=== PATIENT | female | born 1965 | race Caucasian/White ===

== ENCOUNTER → 2019-10-11 14:24 | Outpatient (CLI) | payer OTHER, SELFPAY ==
--- NOTE | ~2019-10-11 | MM_ITS ---
EXAMINATION: MM screening [facility] BI w oscar HISTORY: Screening mammogram TECHNIQUE: Craniocaudal and mediolateral oblique 3-D tomosynthesis images were obtained and synthetic 2-D images were generated. CAD analysis was submitted and interpreted. COMPARISON: 05/07/2017, 04/03/2016, 03/01/2013 BREAST PARENCHYMAL COMPOSITION: The breasts are heterogeneously dense, which may obscure small masses . FINDINGS: RIGHT BREAST: A mass is present in the middle third of the lower inner breast best seen 7 cm from the nipple on the craniocaudal view. LEFT BREAST: There is no evidence of suspicious mass, calcification, or architectural distortion to s uggest malignancy. There has been no significant interval change. IMPRESSION: 1. Right breast mass. 2. Additional mammographic views and possible breast ultrasound are recommended. BI-RADS Category 0: Incomplete: Needs additional imaging evaluation. Reviewed, dictated and finalized at location A. IMPRESSION: 1. Right breast mass. 2. Additional mammographic views and possible breast ultrasound are recommended . BI-RADS Category 0: Incomplete: Needs additional imaging evaluation.
== END ==
PROVIDERS: PCP Family Medicine; Visit Provider Obstetrics & Gynecology
DX: Z12.31 Encounter for screening mammogram for malignant neoplasm of breast (principal); R92.8 Other abnormal and inconclusive findings on diagnostic imaging of breast
CPT/HCPCS: 77063; 77067

== ENCOUNTER → 2019-10-24 14:36 | Outpatient (CLI) | payer OTHER, SELFPAY ==
--- NOTE | ~2019-10-24 | MMUS_ITS ---
EXAMINATION: MM diagnostic mammo unilat RT, US breast RT limited HISTORY: Follow-up right breast mass TECHNIQUE: Additional 3-D tomosynthesis images of the right breast were performed and synthetic 2-D i mages were generated. CAD analysis was submitted and interpreted. High resolution right breast ultras ound was performed. COMPARISON: 10/11/2019 BREAST PARENCHYMAL COMPOSITION: The breasts are heterogenously dense, which may obscure small masses FINDINGS: MAMMOGRAPHIC FINDINGS: There is a persistent focal asymmetry medially in the right breast on CC view, middle third. No suspi cious calcifications or architectural distortion. Right breast ultrasound: At 3:00, 4 cm from the nipple, there is a 4 mm complicated cyst. This likely corresponds to the abnor mality seen on mammogram. No suspicious sonographic masses. IMPRESSION: 1. No evidence for malignancy in the right breast. Benign findings. 2. Routine yearly screening mammogram and regular clinical breast examination are recommended. BI-RADS Category 2: Benign finding(s). Reviewed, dictated and finalized at location A. IMPRESSION: 1. No evidence for malignancy in the right breast. Benign findings. 2. Routine yearly screening mammogram and regular clinical breast examination a re recommended. BI-RADS Category 2: Benign finding(s).
== END ==
PROVIDERS: Visit Provider Obstetrics & Gynecology
DX: R92.8 Other abnormal and inconclusive findings on diagnostic imaging of breast (principal)
CPT/HCPCS: 76642; 77065

== ENCOUNTER → 2021-02-10 15:05 | Outpatient (CLI) | payer OTHER, SELFPAY ==
--- NOTE | ~2021-02-10 | XR_ITS ---
EXAMINATION: XR lumbar spine 2-3V DATE: 02/10/2021 15:30 INDICATION: Low back pain, unspecified. TECHNIQUE: 3 views of lumbar spine were obtained. COMPARISON: None. FINDINGS: There is 3 degrees dextrocurvature of lumbar spine. Vertebral body heights and intervertebr al disc heights are normal. There are endplate osteophytes at most levels. There is multilevel mild t o moderate facet joint osteoarthritis. Surgical clips in the right upper quadrant are likely from cho lecystectomy. IMPRESSION: 1. Mild lumbar spondylosis. Reviewed, dictated and finalized at location A. OR TECHNICAL MANAGER IMPRESSION: 1. Mild lumbar spondylosis.
== END ==
PROVIDERS: PCP Family Medicine; Visit Provider Nurse Practitioner Family
DX: M54.50 Low back pain, unspecified (principal); M47.816 Spondylosis without myelopathy or radiculopathy, lumbar region
CPT/HCPCS: 72100

== ENCOUNTER → 2021-03-07 08:29 | Outpatient (CLI) | payer OTHER, SELFPAY ==
--- NOTE | ~2021-03-07 | MM_ITS ---
EXAMINATION: MM diagnostic [place] BI w oscar HISTORY: Tic bite in July at right breast 3-4:00 with associated lump and redness, not present over past 3 months TECHNIQUE: ML, MLO and craniocaudal 3-D tomosynthesis images of both breasts were performed and synth etic 2-D images were generated. CAD analysis was submitted and interpreted. COMPARISON: 10/24/2019diagnostic right mammogram and limited right breast ultrasound 10/11/2019, 05/07/2017, 04/03/2016 bilateral screening mammogram examinations bilateral screening mammogr am examinations BREAST PARENCHYMAL COMPOSITION: The breasts are heterogeneously dense, which may obscure small masses . FINDINGS: No suspicious mass or architectural distortion, malignant calcification, skin thickening or retraction or significant new or developing density is detected. IMPRESSION: 1. No mammographic evidence of malignancy 2. Routine mammographic screening BI-RADS Category 1: Negative Reviewed, dictated and finalized at location A. S MILL OPERATOR
== END ==
PROVIDERS: PCP Family Medicine; Visit Provider Family Medicine
DX: R92.8 Other abnormal and inconclusive findings on diagnostic imaging of breast (principal)
CPT/HCPCS: 77062; 77066; G0279

== ENCOUNTER → 2021-05-02 14:22 | Outpatient (CLI) | payer OTHER, SELFPAY ==
--- NOTE | ~2021-05-02 | MMUS_ITS ---
EXAMINATION: MM diagnostic [place] RT w oscar, US breast RT limited HISTORY: Pain of the upper right breast TECHNIQUE: Craniocaudal, mediolateral, and mediolateral oblique 3-D tomosynthesis images of the right breast were performed and synthetic 2-D images were generated. CAD analysis was submitted and interp reted. High resolution limited right breast ultrasound was performed. COMPARISON: 03/07/2021, 10/24/2019, 10/11/2019, 05/07/2017, 04/03/2016 BREAST PARENCHYMAL COMPOSITION: The breasts are heterogeneously dense, which may obscure small masses . FINDINGS: MAMMOGRAPHIC FINDINGS: There is no evidence of suspicious mass, calcification, or architectural distortion to suggest jenn leigh. There has been no suspicious interval change. No mammographic correlate the patient's reported right breast pain. ULTRASOUND: No suspicious cystic or solid mass is identified in the area of the patient's reported right breast p ain. There is a 6 mm x 4 mm cyst at the 12:00 location 6 cm from the nipple. IMPRESSION: 1. No suspicious mammographic or sonographic correlate is identified for the patient's reported right breast pain Further evaluation at this time should be based on clinical assessment. Continued follow -up physical examination is recommended. 2. Recommend routine screening mammography in one year. BI-RADS Category 2: Benign finding(s). Reviewed, dictated and finalized at location A. SITTER IMPRESSION: 1. No suspicious mammographic or sonographic correlate is identified for the george nash's reported right breast pain Further evaluation at this time should be ba sed on clinical assessment. Continued follow-up physical examination is recomme nded. 2. Recommend routine screening mammography in one year. BI-RADS Category 2: Benign finding(s).
== END ==
PROVIDERS: PCP Family Medicine; Visit Provider Obstetrics & Gynecology
DX: N64.4 Mastodynia (principal)
CPT/HCPCS: 76642; 77061; 77065; G0279

== ENCOUNTER 2021-05-14 10:11 | Emergency (ER) | payer OTHER, SELFPAY ==
[2021-05-14 10:33] VITALS: BP 152/78; PULSE 87; RESP 20; TEMP 36.4; O2SAT 100
--- NOTE | 2021-05-14 11:59 | ED.BACK ---
HPI - Back Pain/Injury General Chief Complaint: Back Pain/Injury Stated Complaint: back pain Time Seen by Provider: 05/14/21 11:19 Source: patient Mode of arrival: ambulatory Limitations: no limitations History of Present Illness HPI Narrative: Patient is a 55-year-old female complaining of left lower back pain, sharp, 8 out of 10, nonradiating, worse with movement that started 3 days ago. Patient states that she has a history of low back pain and is on muscle relaxers for it, but her pain usually on the right side and not the left. Patient denies any injury to the area. Patient denies any incontinence, weakness or numbness. Patient denies any urinary symptoms. Related Data Home Medications Medication Instructions Recorded Confirmed estradiol 0.0375 mg/24 hr 1 patch TRANSDERMAL 2XW 04/08/21 04/08/21 semiweekly transdermal patch testosterone 50 mg/5 gram (1 %) 1 tube TRANSDERMAL QAM 04/08/21 04/08/21 transdermal gel Allergies Allergy/AdvReac Type Severity Reaction Status Date / Time Sulfa (Sulfonamide Allergy Unknown Unknown Verified 04/08/21 13:41 Antibiotics) Review of Systems Review of Systems: All systems reviewed & are unremarkable except as noted in HPI and below Constitutional: Constitutional: Denies body ache(s), Denies chills, Denies excessive sweating, Denies fatigue, Denies fever(s), Denies headache(s), Denies lethargy, Denies malaise, Denies weakness and Denies weight loss Eyes: Eyes: Denies blurry vision, Denies change in vision and Denies loss of vision ENT: Denies dizziness, Denies ear discharge, Denies headache(s), Denies lip swelling, Denies epistaxis, Denies nasal congestion, Denies neck pain, Denies throat swelling and Denies tongue swelling Cardiovascular: Cardiovascular: Denies chest pain, Denies chest pain at rest, Denies chest pain with activity, Denies diaphoresis, Denies rapid heart rate, Denies edema, Denies irregular heart rhythm, Denies lightheadedness, Denies palpitations, Denies dyspnea and Denies dyspnea on exertion Respiratory: Respiratory: Denies chest congestion, Denies cough, Denies hemoptysis, Denies dyspnea and Denies dyspnea on exertion Gastrointestinal: Gastrointestinal: Denies abdominal pain, Denies melena, Denies hematochezia, Denies diarrhea, Denies nausea, Denies vomiting and Denies hematemesis Musculoskeletal: Musculoskeletal: Denies abnormal gait, Denies deformity, Denies joint swelling, Denies neck pain and Denies numbness Neurologic: Denies Abnormal speech present, Denies abnormal gait, Denies confusion, Denies dizziness, Denies headache(s), Denies focal weakness, Denies loss of vision, Denies numbness, Denies Other visual disturbances, Denies Sensory deficit (Neuro) and Denies weakness Psychiatric: Psychiatric: Denies confusion, Denies depression, Denies auditory hallucinations, Denies homicidal ideation and Denies suicidal ideation Endocrine: Endocrine: Denies cold intolerance, Denies excessive sweating, Denies fatigue, Denies heat intolerance and Denies palpitations Hematologic/Lymphatic: Hematologic/Lymphatic: Denies easy bleeding and Denies easy bruising Allergic/Immunologic: Allergic/Immunologic: Denies lip swelling, Denies throat swelling and Denies tongue swelling PMFSH Past Medical History Medical History BMI 31.0-31.9,adult BMI 32.0-32.9,adult Family History Family History Grandparent Hypertension Family history of malignant neoplasm of breast Family history of coronary artery disease Diabetes mellitus Father Carcinoma of colon Mother Diabetes mellitus Hypertension Sibling Hypertension Diabetes mellitus Social History Social History Tobacco type: cigarettes Smoking end date: 04/05/86 Alcohol intake: current Substance use: never Substance use type: does not use
[2021-05-14] MEDS: HYDROcodone/acetaminophen (*CRX) 5-325 MG TABLET 1 TAB PO (12:10)
[2021-05-14] MEDS: KETOROLAC 30 MG/ML VIAL (*BKC) IM (12:10)
[2021-05-14] MEDS: diazePAM INJ (*CRX) 10 MG/2 ML SYRINGE 5 MG IM (12:11)
[2021-05-14 12:35] LABS: Add Urine Microscopic? NO; Appearance Urine Clear (Clear); Bilirubin Urine Negative (Negative); Blood Urine Negative (Negative); Color Urine Straw (Yellow); Glucose Urine UA Negative (Negative); Ketones Urine Negative (Negative); Leukocyte Esterase Ur Negative LEU/UL (Negative); Nitrate Urine Negative (Negative); Protein Urine Negative (Negative); Urobilinogen Urine Negative mg/dL (<2.0)
[2021-05-14 12:38] LABS: Specific Grav Ur 1.004 (1.001-1.035)
[2021-05-14 14:43] VITALS: BP 133/72; PULSE 71; RESP 14; O2SAT 99
== END 2021-05-14 14:43 | disposition home or self-care (01) ==
PROVIDERS: Emergency Provider Emergency Medicine; PCP Family Medicine
DX: S39.012A Strain of muscle, fascia and tendon of lower back, initial encounter (principal); X58.XXXA Exposure to other specified factors, initial encounter
CPT/HCPCS: 81003; 96372; 99284; A9270; J1885; J3360

== ENCOUNTER → 2021-05-15 11:26 | Outpatient (CLI) | payer OTHER, SELFPAY ==
--- NOTE | ~2021-05-15 | XR_ITS ---
EXAMINATION: XR abdomen/kub 1V DATE: 05/15/2021 11:56 INDICATION: Change in bowel habit. Constipation. Diarrhea. Left lower back pain. TECHNIQUE: A supine view of the abdomen on 2 radiographs was obtained. COMPARISON: None. FINDINGS: There are no dilated loops of bowel. There is a small volume of stool in the colon. There a re phleboliths in the pelvis. Surgical clips in the right upper quadrant are likely from cholecystect daily. IMPRESSION: 1. Normal bowel gas pattern. Reviewed, dictated and finalized at location E. CING SUPERVISOR
== END ==
PROVIDERS: Visit Provider Nurse Practitioner Family
DX: R19.4 Change in bowel habit (principal)
CPT/HCPCS: 74018

== ENCOUNTER → 2021-08-20 11:28 | Outpatient (CLI) | payer OTHER, SELFPAY ==
--- NOTE | ~2021-08-20 | XR_ITS ---
EXAM: XR hip RT min 2V DATE: 08/20/2021 11:53 HISTORY: M25.60 - Stiffness of unspecified joint, not elsewhere cl... . COMPARISON: CT abdomen pelvis 06/22/2012. FINDINGS: Normal mineralization. No fracture or dislocation. No lytic or blastic lesion. Mild degene rative change at the right SI joint and pubic symphysis. Mild superior joint space narrowing of the r ight hip. The left sacroiliac joint is incompletely visualized. No erosion or periosteal change. Jaylin tly ossified body adjacent to the greater trochanter in the frog-leg view may represent a small focus of bursal or dystrophic calcification. Pelvic phleboliths. IMPRESSION: No acute osseous finding in the right hip. Right sacroiliitis. Dystrophic or bursal calci fication adjacent to the greater trochanter. Reviewed, dictated and finalized at location K. IMPRESSION: No acute osseous finding in the right hip. Right sacroiliitis. Dyst rophic or bursal calcification adjacent to the greater trochanter.
--- NOTE | ~2021-08-20 | XR_ITS ---
EXAM: XR foot RT 2V HISTORY: R22.41 - Localized swelling, mass and lump, right lower limb . COMPARISON: None available. FINDINGS: Decreased mineralization. No fracture or dislocation. No lytic or blastic lesion. Joint sp aces are maintained. Mild Achilles and plantar enthesopathy. Large bipartite os navicularis. No erosi on or periosteal change. Soft tissues within normal limits. IMPRESSION: No acute osseous finding in the right foot. No soft tissue abnormality detected. Reviewed, dictated and finalized at location K. IMPRESSION: No acute osseous finding in the right foot. No soft tissue abnormal ity detected.
== END ==
PROVIDERS: PCP Family Medicine; Visit Provider Nurse Practitioner Family
DX: R22.41 Localized swelling, mass and lump, right lower limb (principal); M46.1 Sacroiliitis, not elsewhere classified; M25.60 Stiffness of unspecified joint, not elsewhere classified
CPT/HCPCS: 73502; 73620

== ENCOUNTER 2021-09-11 02:18 | Day surgery (SDC) | payer OTHER, SELFPAY ==
[2021-08-21 12:07] VITALS: BMI 30.2
--- NOTE | 2021-09-10 15:11 | PM.HPGS ---
History of Present Illness History of Present Illness Consent: Risks, benefits, and alternatives have been discussed and questions answered. Patient agrees to proceed with procedure. Chief complaint: hx of colon polyps Narrative: Nikita Tristan is a 55 year old female Referred for colon cancer screening. She had a sessile serrated polyp removed at her last colonoscopy 3 years ago. She also has a family history of colon cancer Review of Systems Review of Systems: All systems reviewed & are unremarkable except as noted in HPI and below PMFSH Past Medical History Medical History BMI 30.0-30.9,adult BMI 31.0-31.9,adult BMI 32.0-32.9,adult Family History Family History Grandparent Hypertension Family history of malignant neoplasm of breast Family history of coronary artery disease Diabetes mellitus Father Carcinoma of colon Mother Diabetes mellitus Hypertension Sibling Hypertension Diabetes mellitus Social History Social History Smoking status: Former smoker Tobacco type: cigarettes Second hand tobacco smoke exposure: Yes Smoking end date: 04/05/86 Alcohol intake: current Substance use: never Substance use type: does not use Living arrangements: with family Additional occupation/education comments: [employer] Gender identity (if verbalized by the patient): Female Sexual Orientation (if Verbalized by the Patient): Straight or Heterosexual Spiritual care concerns: No Agree to blood products: Yes Meds Home Medications and Allergies Home Medications Medication Instructions Recorded Confirmed Type albuterol sulfate 90 mcg/actuation 1 puff inhalation Q4H PRN 05/10/20 09/11/21 Rx aerosol inhaler shortness of breath or wheezing #8.5 grams estradiol 0.0375 mg/24 hr 1 patch transdermal 2XW 04/08/21 09/11/21 History semiweekly transdermal patch (Vivelle-Dot) ibuprofen 600 mg tablet 600 mg PO TID PRN pain #60 tabs 05/14/21 09/11/21 Rx bupropion HCl 150 mg 24 hr tablet, 150 mg PO QAM #30 tabs 07/29/21 09/11/21 Rx extended release (Wellbutrin XL) cyclobenzaprine 10 mg tablet 10 mg PO TID PRN muscle spasm #30 05/17/22 06/09/22 Rx tabs alprazolam 0.5 mg tablet (Xanax) 0.5 mg PO BID PRN anxiety 08/21/21 09/11/21 History Allergies Allergy/AdvReac Type Severity Reaction Status Date / Time Sulfa (Sulfonamide Allergy Unknown Unknown Verified 09/11/21 07:29 Antibiotics) Exam Resp: Auscultation: clear to auscultation bilaterally Cardio: Rate: regular rate Rhythm: regular rhythm GI: GI Palp: Yes Soft to palpation and No Tenderness to palpation present (GI) Assessment and Plan Assessment and plan (1) Colon cancer screening: Code(s): Z12.11 - Encounter for screening for malignant neoplasm of colon Status: Acute Assessment and Plan: Colonoscopy with possible biopsy or polypectomy or cautery or injection of substances.
[2021-09-11 07:30] VITALS: BP 130/80; PULSE 98; RESP 18; TEMP 36.1; O2SAT 100
[2021-09-11] MEDS: LACTATED RINGERS 1,000 ML 150 ML IV CONT (07:40)
--- NOTE | 2021-09-11 08:27 | WPDANESEPPF ---
Anes - Initial Pre Proc Eval Procedure: Operation Date: 09/11/21 08:30 Proposed Procedures p Screening Colonoscopy - Reymundo Estevez MD Date/Time: 09/11/21 08:27 Surgeon: Reymundo Estevez MD Pre Op Diagnosis: hx of colon polyps Patient Data Age: 55 Gender: F Height: 1.57 m Weight: 76.1 kg Last Vital Signs Temp 97 F L 09/11/21 07:30 Pulse 98 09/11/21 07:30 Resp 18 09/11/21 07:30 BP 130/80 09/11/21 07:30 Pulse Ox 100 09/11/21 07:30 O2 Del Method Room Air 09/11/21 07:30 Allergies Allergy/AdvReac Type Severity Reaction Status Date / Time Sulfa (Sulfonamide Allergy Unknown Unknown Verified 09/11/21 07:29 Antibiotics) Home Medications Medication Instructions Recorded Confirmed Type albuterol sulfate 90 mcg/actuation 1 puff inhalation Q4H PRN 05/10/20 09/11/21 Rx aerosol inhaler shortness of breath or wheezing #8.5 grams estradiol 0.0375 mg/24 hr 1 patch transdermal 2XW 04/08/21 09/11/21 History semiweekly transdermal patch (Vivelle-Dot) ibuprofen 600 mg tablet 600 mg PO TID PRN pain #60 tabs 05/14/21 09/11/21 Rx bupropion HCl 150 mg 24 hr tablet, 150 mg PO QAM #30 tabs 07/29/21 09/11/21 Rx extended release (Wellbutrin XL) cyclobenzaprine 10 mg tablet 10 mg PO TID PRN muscle spasm #30 08/19/21 09/11/21 Rx tabs alprazolam 0.5 mg tablet (Xanax) 0.5 mg PO BID PRN anxiety 08/21/21 09/11/21 History Patient hx anesthesia problems: none Family hx anesthesia problems: none Results Review: All pre-operative results and documents have been reviewed as part of the pre-operative evaluation. [facility] Past Medical History Medical History BMI 30.0-30.9,adult BMI 31.0-31.9,adult BMI 32.0-32.9,adult Family History Family History Grandparent Hypertension Family history of malignant neoplasm of breast Family history of coronary artery disease Diabetes mellitus Father Carcinoma of colon Mother Diabetes mellitus Hypertension Sibling Hypertension Diabetes mellitus Social History Social History Smoking status: Former smoker Tobacco type: cigarettes Second hand tobacco smoke exposure: Yes Smoking end date: 04/05/86 Alcohol intake: current Substance use: never Substance use type: does not use Living arrangements: with family Additional occupation/education comments: [employer] Gender identity (if verbalized by the patient): Female Sexual Orientation (if Verbalized by the Patient): Straight or Heterosexual Spiritual care concerns: No Agree to blood products: Yes Anes - Eval Final PreProcedure Day of Procedure 09/11/21 08:27 Patient weight: overweight Heart: regular rate and rhythm Lungs: clear to auscultation Airway: Mallampati scale class II Neurological: alert and oriented Last oral intake: >/= 8 hours ASA classification: II Emergent: no Anesthetic plan: proceed Anesthesia type and monitoring: general GIVS and standard monitoring Results Review: All pre-operative results and documents have been reviewed as part of the pre-operative evaluation. Informed Consent: The patient's anesthetic plan and its attendant risks and benefits were discussed with the patient/family/POA. Questions were solicited and answers provided to the satisfaction of the patient/family/POA.
[2021-09-11 08:39] VITALS: BP 111/61; PULSE 74; RESP 19; O2SAT 100
[2021-09-11 08:49] VITALS: BP 121/60; PULSE 83; RESP 17; O2SAT 100
[2021-09-11 08:59] VITALS: BP 117/62; PULSE 80; RESP 16; O2SAT 100
== END 2021-09-11 09:15 | disposition home or self-care (01) ==
PROVIDERS: PCP Family Medicine; Visit Provider Internal Medicine Gastroenterology
PROC: 0DJD8ZZ Inspection of Lower Intestinal Tract, Via Natural or Artificial Opening Endoscopic (ICD-10-PCS; CPT 45378; principal; 2021-09-11 08:30)
DX: Z12.11 Encounter for screening for malignant neoplasm of colon (principal); Z86.010 Personal history of colon polyps; Z87.891 Personal history of nicotine dependence; Z79.51 Long term (current) use of inhaled steroids
CPT/HCPCS: 45378; J2704; J7120

== ENCOUNTER → 2022-07-27 13:20 | Outpatient (CLI) | payer BC, SELFPAY ==
--- NOTE | ~2022-07-27 | US_ITS ---
EXAMINATION: US carotid duplex BI DATE: 07/27/2022 13:47 INDICATION: Headaches. Vertigo. Carotid atherosclerosis. TECHNIQUE: Grayscale, color Doppler, and pulsed Doppler images of the cervical carotid arteries were obtained. The degree of vessel stenosis is placed in one of the following categories: normal, <50%, 5 0-69%, >=70% but less than near-occlusion, near-occlusion, or total occlusion. Note that percent sten osis relative to normal distal artery lumen diameter is indirectly measured from velocity measurement s as described by Rosalio, et al. Radiology 2003; 229:340-346. COMPARISON: 01/02/2019 FINDINGS: RIGHT: The right common carotid artery (CCA) peak systolic velocity (PSV) is 96 cm/s. The right internal car otid artery (ICA) PSV is 63 cm/s. The right ICA end-diastolic velocity (EDV) is 17 cm/s. The right IC A/CCA PSV ratio is 1.1. Grayscale and color Doppler images yield an estimate of <50% diameter reducti on from plaque in the ICA. The external carotid artery (ECA) PSV is 40 cm/s. There is antegrade flow in the right vertebral artery. LEFT: The left CCA PSV is 79 cm/s. The left ICA PSV is 72 cm/s. The left ICA EDV is 29 cm/s. The left ICA/C CA PSV ratio is 1.4. Grayscale and color Doppler images yield an estimate of <50% diameter reduction from plaque in the ICA. The ECA PSV is 65 cm/s. There is antegrade flow in the left vertebral artery. IMPRESSION: 1. <50% stenosis in the right internal carotid artery. 2. <50% stenosis in the left internal carotid artery. Reviewed, dictated and finalized at location A.
--- NOTE | ~2022-07-27 | MR_ITS ---
EXAMINATION: MR brain/brain stem wo con DATE: 07/27/2022 14:09 INDICATION: Headache. TECHNIQUE: Magnetic resonance imaging (MRI) of the brain and brainstem was performed without intraven ous contrast. COMPARISON: Brain MRI 01/02/2019, head CT 01/01/2019 FINDINGS: There is no intracranial hemorrhage, acute infarction, or abnormal intracranial mass lesion . The ventricles are normal in size. The paranasal sinuses are clear. The orbits are normal. The mast oid air cells are normal. IMPRESSION: 1. Normal brain. Reviewed, dictated and finalized at location A. IMPRESSION: 1. Normal brain.
== END ==
PROVIDERS: PCP Family Medicine; Visit Provider Nurse Practitioner Family
DX: R51.9 Headache, unspecified (principal); R07.9 Chest pain, unspecified; I65.23 Occlusion and stenosis of bilateral carotid arteries
CPT/HCPCS: 70551; 93880

== ENCOUNTER → 2022-08-06 15:07 | Outpatient (CLI) | payer BC, SELFPAY ==
--- NOTE | ~2022-08-06 | MM_ITS ---
EXAMINATION: MM screening [facility] BI w oscar HISTORY: Screening mammogram TECHNIQUE: Craniocaudal and mediolateral oblique 3-D tomosynthesis images were obtained and synthetic 2-D images were generated. CAD analysis was submitted and interpreted. COMPARISON: 04/24/2021, 03/07/2021, 10/24/2019, 10/31/2019 BREAST PARENCHYMAL COMPOSITION: The breasts are heterogeneously dense, which may obscure small masses . FINDINGS: No suspicious mass, calcification, or architectural distortion are identified in either eloise ast to suggest malignancy. There has been no suspicious interval change. IMPRESSION: 1. No mammographic evidence of malignancy. 2. Recommend routine screening mammography in one year. BI-RADS Category 1: Negative Reviewed, dictated and finalized at location A.
== END ==
PROVIDERS: PCP Family Medicine; Visit Provider Family Medicine
DX: Z12.31 Encounter for screening mammogram for malignant neoplasm of breast (principal)
CPT/HCPCS: 77063; 77067

== ENCOUNTER 2022-10-12 09:06 | Outpatient (CLI) | payer BC, SELFPAY ==
[2022-10-12 12:46] LABS: Basophils Percent Auto 0.3 % (0.2-1.2); Eosinophils Absolute Auto 0.1 K/mm3 (0-0.3); Eosinophils Percent Auto 1.3 % (0-4.4); Hematocrit 42.7 % (37.0-47.0); Immature Granulocyte Absolute 0.03 K/mm3 (0.00-0.031); Immature Granulocyte Percent A 0.4 % (0-0.5); Lymphocytes Absolute Auto 2.01 K/mm3 (0.9-3.2); Lymphocytes Percent Auto 26.2 % (18.3-44.2); Mean Corpuscular HGB Conc 32.8 g/dl (32-36); Mean Corpuscular Hemoglobin 27.6 pg (26-34); Mean Corpuscular Volume 84.2 fl (80-100); Monocytes Absolute Auto 0.5 K/mm3 (0.1-0.6); Neutrophils Percent Auto 64.8 % (45.5-73.1); Platelet Count Result 313 k/mm3 (150-375); Red Blood Count 5.07 M/mm3 (4.2-5.4); Red Cell Distribution Width 13.8 % (11.5-14.5); White Blood Count 7.7 K/mm3 (4.5-10.0)
[2022-10-12 12:51] LABS: Rheumatoid Factor < 12.0 IU/ML (<12)
[2022-10-12 12:58] LABS: Anion Gap 1 mmol/L (8-16); Blood Urea Nitrogen 22 mg/dL (7-17); Calcium 9.5 mg/dL (8.4-10.2); Carbon Dioxide 29 mmol/L (22-30); Chloride 105 mmol/L (98-107); Estimated Glomerular Filt Rate > 60; Glucose 99 mg/dL (65-110); Potassium 3.9 mmol/L (3.4-5.0); Sodium 135 mmol/L (137-145)
[2022-10-12 13:20] LABS: Thyroid Stimulating Hormone < 0.015 uIU/mL (0.465-4.680)
[2022-10-12 14:55] LABS: Erythrocyte Sedimentation Rate 12 mm/hr (0-20)
[2022-10-15 05:31] LABS: Anti Nuclear Antibody Titer 1:40 (Negative)
== END 2022-10-12 09:07 | disposition home or self-care (01) ==
LOC: ANHGOSHLAB 09:07
PROVIDERS: PCP Family Medicine; Visit Provider Family Medicine
DX: M25.50 Pain in unspecified joint (principal); F41.9 Anxiety disorder, unspecified
CPT/HCPCS: 36415; 80048; 84439; 84443; 85025; 85652; 86038; 86039; 86430

== ENCOUNTER 2022-10-12 09:29 | Outpatient (CLI) | payer BC, SELFPAY ==
--- NOTE | ~2022-10-12 | XR_ITS ---
EXAMINATION: [id number] INDICATION: Heel pain TECHNIQUE: Four views of the left foot are obtained. COMPARISON: None available FINDINGS: No fracture, dislocation, or subluxation. The bones and joint spaces are normal. IMPRESSION: 1. No acute osseous abnormality. Reviewed, dictated and finalized at location B.
== END 2022-10-12 09:30 ==
PROVIDERS: PCP Family Medicine; Visit Provider Family Medicine
DX: M79.672 Pain in left foot (principal)
CPT/HCPCS: 73630

== ENCOUNTER 2023-02-26 08:43 | Outpatient (CLI) | payer BC, SELFPAY ==
--- NOTE | ~2023-02-26 | MR_ITS ---
EXAMINATION: MR abdomen wo/w con INDICATION: Hepatomegaly not elsewhere classified reported liver and right kidney masses on CT TECHNIQUE: Coronal SSFSE ARC, WATER:coronal LAVA-FLEX, Coronal 2D FIESTA FatSat, Axial SSFSE BH ARC, Axial 3D DualEcho BH, Axial SSFSE-IR, Axial DWI b=500, Axial 2D FIESTA FatSat, pre and dynamic postco ntrast Axial LAVA ARC, postcontrast Coronal In and Opposed phase LAVA FLEX COMPARISON: None current; prior MRI dated 04/12/2009 CONTRAST: Multihance, 13 cc FINDINGS: There is a stable no suspicious liver mass is identified. Changes of cholecystectomy are no anum. The spleen, pancreas, and adrenal glands are normal. There is a 2.5 cm cyst of the right kidney. The left kidney is unremarkable. There are no pathologically enlarged abdominal lymph nodes. There a re no dilated loops of bowel. 12 mm mildly T1 hypointense and mildly T2 hyperintense mass in liver se gment VIII which demonstrates slow peripheral enhancement after contrast administration, most consist ent with a hemangioma. IMPRESSION: 1. Stable liver mass most consistent with a hemangioma. 2. Simple cyst of the right kidney. Reviewed, dictated and finalized at location F. ER TRIMMER
== END 2023-02-26 08:44 | disposition home or self-care (01) ==
PROVIDERS: PCP Family Medicine; Visit Provider Family Medicine
DX: R16.0 Hepatomegaly, not elsewhere classified (principal); N28.89 Other specified disorders of kidney and ureter; N28.1 Cyst of kidney, acquired
CPT/HCPCS: 74183; A9577

== ENCOUNTER 2023-06-24 10:54 | Outpatient (CLI) | payer BC, SELFPAY ==
--- NOTE | ~2023-06-24 | XR_ITS ---
Left Shoulder Technique: AP and scapular Y views were obtained. Clinical History: Pain Findings: No fracture or dislocation is seen. Osseous alignment is anatomic. The glenohumeral joint i s intact. Mild AC joint degenerative change present. Soft tissues are unremarkable. Impression: Mild AC joint degenerative change. Reviewed, dictated and finalized at [facility]. Impression: Mild AC joint degenerative change.
== END 2023-06-24 10:55 | disposition home or self-care (01) ==
PROVIDERS: PCP Family Medicine; Visit Provider Physician Assistant
DX: M25.512 Pain in left shoulder (principal)
CPT/HCPCS: 73030

== ENCOUNTER 2023-07-01 08:13 | Outpatient (CLI) | payer BC, SELFPAY ==
--- NOTE | ~2023-07-01 | US_ITS ---
EXAMINATION: US art doppler w press UE BI DATE: 07/01/2023 12:39 CDT INDICATION: Peripheral vascular disease TECHNIQUE: Segmental pressures and plethysmographic and Doppler waveforms of the upper extremity rashid leah were obtained. COMPARISON: None. FINDINGS: Right and left brachial artery pressures of 158 mm Hg and 160 mm Hg, respectively, are concordant (no rmal difference <= 30 mmHg). The right finger:brachial systolic pressure ratio is 0.92 (normal > 0.8) . Segmental pressure gradients are normal. Arterial Doppler waveforms biphasic (normal upstroke < 0.2 s). The left finger:brachial systolic pressure ratio is 0.86. Segmental pressure gradients are normal. Ar terial Doppler waveforms are biphasic. IMPRESSION: 1. Normal upper extremity arterial Doppler study. Reviewed, dictated and finalized at location L.
== END 2023-07-01 08:14 | disposition home or self-care (01) ==
LOC: ANHIMG 08:15
PROVIDERS: PCP Family Medicine; Visit Provider Physician Assistant
DX: I99.8 Other disorder of circulatory system (principal)
CPT/HCPCS: 93923

== ENCOUNTER 2024-02-04 01:15 | Emergency (ER) | payer BC, SELFPAY ==
[2024-02-04 01:18] VITALS: BP 152/82; PULSE 79; RESP 18; TEMP 36.7; O2SAT 100
--- NOTE | 2024-02-04 01:18 | ECG_ITS ---
Test Date: 2024-02-04 01:28:33 Measurements Intervals [place] Rate: 75 P: 65 WI: 183 QRS: 30 QRSD: 85 T: 49 QT: 392 QTc: 440 Interpretive Statements SINUS RHYTHM BASELINE ARTIFACT- I, II, III, AVR, AVL, AVF, V4-V6 NORMAL ECG No previous ECG available for comparison Electronically Signed On 02-04-2024 06:48:28 CDT by Murali Samson D.O.
[2024-02-04 01:39] LABS: Basophils Percent Auto 0.3 % (0.2-1.2); Eosinophils Absolute Auto 0.3 K/mm3 (0-0.3); Eosinophils Percent Auto 2.2 % (0-4.4); Hematocrit 43.5 % (37.0-47.0); Hemoglobin 14.9 g/dL (12.0-15.0); Immature Granulocyte Absolute 0.07 K/mm3 (0.00-0.031); Immature Granulocyte Percent A 0.5 % (0-0.5); Lymphocytes Absolute Auto 4.18 K/mm3 (0.9-3.2); Lymphocytes Percent Auto 32.5 % (18.3-44.2); Mean Corpuscular HGB Conc 34.3 g/dl (32-36); Mean Corpuscular Hemoglobin 29.6 pg (26-34); Mean Corpuscular Volume 86.3 fl (80-100); Mean Platelet Volume 10.4 fl (7.4-10.4); Monocytes Percent Auto 7.4 % (2.6-8.5); Neutrophils Absolute Auto 7.4 K/mm3 (1.3-6.7); Neutrophils Percent Auto 57.1 % (45.5-73.1); Platelet Count Result 285 k/mm3 (150-375); Red Blood Count 5.04 M/mm3 (4.2-5.4); Red Cell Distribution Width 12.7 % (11.5-14.5); White Blood Count 12.9 K/mm3 (4.5-10.0)
[2024-02-04 01:48] LABS: Alanine Aminotransferase 21 U/L (6-35); Alkaline Phosphatase 112 U/L (38-126); Anion Gap 9 mmol/L (4-12); Aspartate Amino Transferase 24 U/L (14-36); Bilirubin,Total 0.4 mg/dL (0.2-1.3); Blood Urea Nitrogen 20 mg/dL (7-17); Carbon Dioxide 28 mmol/L (22-30); Chloride 104 mmol/L (98-107); Estimated CRCL calculation 68 ml/min; Estimated Glomerular Filt Rate > 60; Glucose 102 mg/dL (65-110); Lipase 103 U/L (23-300); Potassium 3.8 mmol/L (3.4-5.0); Sodium 141 mmol/L (137-145)
[2024-02-04 01:53] LABS: INR 0.9; Prothrombin Time 12.8 Seconds (11.1-14.7)
[2024-02-04 01:54] LABS: Partial Thromboplastin Time 33.5 Seconds (22.3-36.8)
[2024-02-04 01:59] LABS: Troponin I < 0.012 ng/mL (0.000-0.034)
== END 2024-02-04 03:57 | disposition left against medical advice (07) ==
LOC: ANHED 02:36
PROVIDERS: Emergency Provider Emergency Medicine; PCP Family Medicine
DX: R07.89 Other chest pain (principal); R68.84 Jaw pain; R11.2 Nausea with vomiting, unspecified
CPT/HCPCS: 36415; 80053; 83690; 84484; 85025; 85610; 85730; 93005; 99199

== ENCOUNTER 2024-09-26 10:51 | Outpatient (CLI) | payer BC, SELFPAY ==
--- NOTE | ~2024-09-26 | CT_ITS ---
CT abdomen pelvis w con Ordering provider: KIMBERLI Heath History: 58 years Female with . Generalized abdominal pain, LBP X 2 WEEKS, CONSTIPATION . Comparison: April 24, 2012 Technique: CT abdomen and pelvis with IV and without oral contrast. Automated exposure control and it erative reconstruction technique were employed. The dose-length product was 526.41 mGy-cm. 100 mL Omn ipaque 350 was given IV. Findings: VISUALIZED LOWER CHEST: Normal. UPPER ABDOMINAL ORGANS: Liver: Small hypodensity in the right lobe of the liver segment 7 which measures 1.4 cm. This may be a cyst or a mass. Ultrasound evaluation advised. Gallbladder: Status post cholecystectomy. Spleen: Normal. Stomach/duodenum: Normal. Pancreas: Normal. Adrenals: Normal. Kidneys: Right mid pole cyst is seen in the right kidney measuring 2.5 cm. PELVIC ORGANS: The bladder is normal. BOWEL AND MESENTERY: Colon: No evidence of diverticulitis. The appendix is not demonstrated. Small Bowel: Normal. No obstruction. Peritoneum/mesentery: No free air or free fluid. No mesenteric lymphadenopathy. RETROPERITONEUM: Normal aorta. No retroperitoneal lymphadenopathy. MUSCULOSKELETAL: Superficial soft tissues: The superficial soft tissues are normal. Bones: Age appropriate degenerative changes of the spine. IMPRESSION: 1. No evidence of appendicitis, diverticulitis or intestinal obstruction. 2. Hypodensity in the liver which may be cysts or masses. Follow-up and further evaluation advised. Reviewed, dictated and finalized at location A. IMPRESSION: 1. No evidence of appendicitis, diverticulitis or intestinal obstruction. 2. Hypodensity in the liver which may be cysts or masses. Follow-up and furthe r evaluation advised.
[2024-09-26 12:04] LABS: Basophils Percent Auto 0.4 % (0.2-1.2); Eosinophils Absolute Auto 0.1 K/mm3 (0-0.3); Eosinophils Percent Auto 1.2 % (0-4.4); Hematocrit 44.6 % (37.0-47.0); Hemoglobin 14.7 g/dL (12.0-15.0); Immature Granulocyte Absolute 0.04 K/mm3 (0.00-0.031); Immature Granulocyte Percent A 0.5 % (0-0.5); Lymphocytes Absolute Auto 2.54 K/mm3 (0.9-3.2); Lymphocytes Percent Auto 30.9 % (18.3-44.2); Mean Corpuscular Hemoglobin 27.9 pg (26-34); Mean Corpuscular Volume 84.8 fl (80-100); Mean Platelet Volume 10.6 fl (7.4-10.4); Monocytes Absolute Auto 0.6 K/mm3 (0.1-0.6); Monocytes Percent Auto 7.5 % (2.6-8.5); Neutrophils Absolute Auto 4.9 K/mm3 (1.3-6.7); Neutrophils Percent Auto 59.5 % (45.5-73.1); Platelet Count Result 265 k/mm3 (150-375); Red Blood Count 5.26 M/mm3 (4.2-5.4); Red Cell Distribution Width 12.8 % (11.5-14.5); White Blood Count 8.2 K/mm3 (4.5-10.0)
[2024-09-26 12:15] LABS: Alanine Aminotransferase 17 U/L (6-35); Albumin Level 4.3 g/dL (3.5-5.1); Alkaline Phosphatase 78 U/L (38-126); Anion Gap 9 mmol/L (4-12); Aspartate Amino Transferase 24 U/L (14-36); Bilirubin,Total 0.3 mg/dL (0.2-1.3); Blood Urea Nitrogen 18 mg/dL (7-17); Calcium 9.3 mg/dL (8.4-10.2); Carbon Dioxide 24 mmol/L (22-30); Chloride 105 mmol/L (98-107); Estimated Glomerular Filt Rate > 60; Glucose 91 mg/dL (65-110); Potassium 3.8 mmol/L (3.4-5.0); Sodium 138 mmol/L (137-145)
[2024-09-26 12:46] LABS: Thyroid Stimulating Hormone 0.145 uIU/mL (0.465-4.680)
[2024-09-26 12:49] LABS: Free T4 Free Thyroxine 1.19 ng/dL (0.78-2.19)
== END 2024-09-26 10:52 | disposition home or self-care (01) ==
PROVIDERS: PCP Family Medicine; Visit Provider Nurse Practitioner Family
DX: R16.0 Hepatomegaly, not elsewhere classified (principal); E03.9 Hypothyroidism, unspecified; R19.4 Change in bowel habit; M54.50 Low back pain, unspecified
CPT/HCPCS: 36415; 74177; 80053; 84439; 84443; 85025; Q9967

== ENCOUNTER 2024-12-15 02:18 | Day surgery (SDC) | payer BC, SELFPAY ==
[2024-12-06 10:46] VITALS: BMI 29.2
[2024-12-15 09:16] VITALS: BP 112/61; PULSE 83; RESP 18; TEMP 36.5; O2SAT 100; BMI 28.9
[2024-12-15] MEDS: LACTATED RINGERS 1,000 ML 150 ML IV CONT (09:44)
--- NOTE | 2024-12-15 09:48 | WPDANESEPPF ---
Anes - Initial Pre Proc Eval Procedure: Operation Date: 12/15/24 10:30 Proposed Procedures p Diagnostic Colonoscopy - Red Thomas MD Date/Time: 12/15/24 09:48 Surgeon: Red Thomas MD Pre Op Diagnosis: Constipation, unspecified Patient Data Age: 58 Gender: F Height: 1.57 m Weight: 71.8 kg Last Vital Signs Temp 36.5 C 12/15/24 09:16 Pulse 83 12/15/24 09:16 Resp 18 12/15/24 09:16 BP 112/61 12/15/24 09:16 Pulse Ox 100 12/15/24 09:16 O2 Del Method Room Air 12/15/24 09:16 Allergies Allergy/AdvReac Type Severity Reaction Status Date / Time Sulfa (Sulfonamide Allergy Unknown Unknown Verified 12/15/24 09:15 Antibiotics) Home Medications ?Medication ?Instructions ?Recorded ?Confirmed ?Type estradiol 0.0375 mg/24 hr 1 patch transdermal 2XW 04/08/21 12/15/24 History semiweekly transdermal patch (Vivelle-Dot) ibuprofen 600 mg tablet 600 mg PO TID PRN pain #60 tabs 09/07/24 12/07/24 Rx bupropion HCl 150 mg 24 hr tablet, 150 mg PO DAILY #90 tabs 10/09/24 12/15/24 Rx extended release cyclobenzaprine 10 mg tablet 10 mg PO TID PRN muscle spasm #30 12/06/24 12/15/24 Rx tabs losartan 25 mg tablet 25 mg PO DAILY 12/06/24 12/15/24 History testosterone undecanoate 100 mg 4 mg PO QAM 12/06/24 12/15/24 History capsule thyroid (pork) 60 mg tablet (TERMINAL CLERK 60 mg PO DAILY 12/06/24 12/15/24 History Thyroid) valacyclovir 500 mg tablet 500 mg PO DAILY PRN herpes 12/06/24 12/15/24 History (Valtrex) Patient hx anesthesia problems: none Family hx anesthesia problems: none Results Review: All pre-operative results and documents have been reviewed as part of the pre-operative evaluation. [facility] Past Medical History Medical History (Updated 12/14/24 @ 15:43 by Jose Enrique Martin DO) TIA (transient ischemic attack) Elevated blood pressure reading Labral tear of hip joint Right hip pain Exposure to COVID-19 virus Acute sinusitis Anxiety disorder, unspecified Acute bacterial sinusitis BMI 25.0-25.9,adult Kidney mass Liver mass BMI 36.0-36.9,adult Pain in foot Inflamed skin tag Arthritis IBS (irritable bowel syndrome) Hypertension Wears glasses Weight gain History of adverse reaction to anesthesia Sprain of anterior cruciate ligament of unspecified knee, initial encounter BMI 30.0-30.9,adult BMI 32.0-32.9,adult BMI 31.0-31.9,adult Surgical History Surgical History H/O anterior cruciate ligament surgery History of hysterectomy History of cholecystectomy History of appendectomy History of tonsillectomy Family History Family History Grandparent Hypertension Family history of malignant neoplasm of breast Family history of coronary artery disease Diabetes mellitus Father Carcinoma of colon COPD (chronic obstructive pulmonary disease) Acute myocardial infarction Mother Diabetes mellitus Hypertension Ovarian cancer Sibling Hypertension Diabetes mellitus Other Breast cancer Heart disease High cholesterol Lung disease Social History Social History Smoking status: Former smoker Tobacco type: cigarettes Second hand tobacco smoke exposure: Yes Smoking end date: 04/05/94 Alcohol intake: current Drinks per week: 1 Substance use: never Substance use type: does not use Lack of Transportation: YES Lack of Food: Never True Current Housing: I Have Housing Concerned About Future Housing: No Difficulty Paying Gas/Electric Bills: No Difficulty Paying for Meds: No Currently Unemployed: No Education: Associate Degree Difficulty w/ Childcare or Family Care: No Living arrangements: with family Occupation/Education: occupation Additional occupation/education comments: [employer] Gender identity (if verbalized by the patient): Female Sexual Orientation (if Verbalized by the Patient): Straight or Heterosexual Spiritual care concerns: No Agree to blood products: Yes Anes - Eval Final PreProcedure Day of Procedure 12/15/24 09:48 Patient weight: overweight Heart: regular rate and rhythm Lungs: clear to auscultation Airway: Mallampati scale class II Neurological: alert and oriented Last oral intake: >/= 8 hours ASA classification: III Emergent: no Anesthetic plan: proceed Anesthesia type and monitoring: general GIVS and standard monitoring Results Review: All pre-operative results and documents have been reviewed as part of the pre-operative evaluation. Informed Consent: The patient's anesthetic plan and its attendant risks and benefits were discussed with the patient/family/POA. Questions were solicited and answers provided to the satisfaction of the patient/family/POA.
--- NOTE | 2024-12-15 09:59 | PM.HPGS ---
History of Present Illness History of Present Illness Consent: Risks, benefits, and alternatives have been discussed and questions answered. Patient agrees to proceed with procedure. Chief complaint: Constipation, unspecified Narrative: Nikita Tristan is a 58 year old female with colon polyp in 2021 but recently with bloating and abdominal discomfort Review of Systems Review of Systems: All systems reviewed & are unremarkable except as noted in HPI and below PMFSH Past Medical History Medical History (Updated 12/14/24 @ 15:43 by Jose Enrique Martin, ) TIA (transient ischemic attack) Elevated blood pressure reading Labral tear of hip joint Right hip pain Exposure to COVID-19 virus Acute sinusitis Anxiety disorder, unspecified Acute bacterial sinusitis BMI 25.0-25.9,adult Kidney mass Liver mass BMI 36.0-36.9,adult Pain in foot Inflamed skin tag Arthritis IBS (irritable bowel syndrome) Hypertension Wears glasses Weight gain History of adverse reaction to anesthesia Sprain of anterior cruciate ligament of unspecified knee, initial encounter BMI 30.0-30.9,adult BMI 32.0-32.9,adult BMI 31.0-31.9,adult Surgical History Surgical History H/O anterior cruciate ligament surgery History of hysterectomy History of cholecystectomy History of appendectomy History of tonsillectomy Family History Family History Grandparent Hypertension Family history of malignant neoplasm of breast Family history of coronary artery disease Diabetes mellitus Father Carcinoma of colon COPD (chronic obstructive pulmonary disease) Acute myocardial infarction Mother Diabetes mellitus Hypertension Ovarian cancer Sibling Hypertension Diabetes mellitus Other Breast cancer Heart disease High cholesterol Lung disease Social History Social History Smoking status: Former smoker Tobacco type: cigarettes Second hand tobacco smoke exposure: Yes Smoking end date: 04/05/94 Alcohol intake: current Drinks per week: 1 Substance use: never Substance use type: does not use Lack of Transportation: YES Lack of Food: Never True Current Housing: I Have Housing Concerned About Future Housing: No Difficulty Paying Gas/Electric Bills: No Difficulty Paying for Meds: No Currently Unemployed: No Education: Associate Degree Difficulty w/ Childcare or Family Care: No Living arrangements: with family Occupation/Education: occupation Additional occupation/education comments: [employer] Gender identity (if verbalized by the patient): Female Sexual Orientation (if Verbalized by the Patient): Straight or Heterosexual Spiritual care concerns: No Agree to blood products: Yes Meds Home Medications and Allergies Home Medications ?Medication ?Instructions ?Recorded ?Confirmed ?Type estradiol 0.0375 mg/24 hr 1 patch transdermal 2XW 04/08/21 12/15/24 History semiweekly transdermal patch (Vivelle-Dot) ibuprofen 600 mg tablet 600 mg PO TID PRN pain #60 tabs 09/07/24 12/07/24 Rx bupropion HCl 150 mg 24 hr tablet, 150 mg PO DAILY #90 tabs 10/09/24 12/15/24 Rx extended release cyclobenzaprine 10 mg tablet 10 mg PO TID PRN muscle spasm #30 12/06/24 12/15/24 Rx tabs losartan 25 mg tablet 25 mg PO DAILY 12/06/24 12/15/24 History testosterone undecanoate 100 mg 4 mg PO QAM 12/06/24 12/15/24 History capsule thyroid (pork) 60 mg tablet ([employer] 60 mg PO DAILY 12/06/24 12/15/24 History Thyroid) valacyclovir 500 mg tablet 500 mg PO DAILY PRN herpes 12/06/24 12/15/24 History (Valtrex) Allergies Allergy/AdvReac Type Severity Reaction Status Date / Time Sulfa (Sulfonamide Allergy Unknown Unknown Verified 12/15/24 09:15 Antibiotics) Vital Signs Vital Signs - 24 hr 12/15/24 09:16 Temperature 97.7 F Pulse Rate 83 Respiratory Rate 18 Blood Pressure 112/61 Pulse Oximetry 100 Oxygen Delivery Room Air Exam Const: General: comfortable and no acute distress HENMT: Face/Nose/Sinus: Normal nares present Eyes: General: appearance normal, both eyes and all related structures Neck: Neck: no JVD Resp: Auscultation: clear to auscultation bilaterally Cardio: Rate: regular rate Rhythm: regular rhythm GI: Inspection: non-distended GI Palp: Yes Soft to palpation Skin: General skin exam: normal color Neuro: Speech: normal speech Extrem: General: normal to inspection Psych: Mental Status: mental status grossly normal Assessment and Plan Assessment and plan (1) Abdominal pain: Qualifiers: Abdominal location: generalized Qualified Code(s): R10.84 - Generalized abdominal pain Code(s): R10.9 - Unspecified abdominal pain Status: Acute Assessment and Plan: colonoscopy
--- NOTE | 2024-12-15 10:11 | S_PTH ---
PATIENT: Nikita Tristan LOC: [facility]#:[id number] AGE/SX: 58/F ROOM: RE12/15/[address]: Red Thomas MD : 1965 BED: DIS: 12/15/2024 SPEC #: [id number] RECD: 12/15/24 11:04 STATUS: DON REEthan #: [id number] OLENA: 12/15/24 10:[address]: Red Thomas DEPT: [facility] Surgical RECD BY: Tamiko Ag ENTERED: 12/15/24 11:04 SP TYPE: Surgical OTHR DR: Jozef Davidson MD Tissues: A - Rectal Polyp Procedures: Hematoxylin and Eosin Stain Gross and Microscopic Level 4
[2024-12-15 10:13] VITALS: BP 100/51; PULSE 74; RESP 18; O2SAT 100
[2024-12-15 10:23] VITALS: BP 101/50; PULSE 75; RESP 19; O2SAT 100
[2024-12-15 10:33] VITALS: BP 113/62; PULSE 72; RESP 20; O2SAT 100
== END 2024-12-15 10:50 | disposition home or self-care (01) ==
PROVIDERS: PCP Family Medicine; Referring Provider Nurse Practitioner Family; Visit Provider Internal Medicine Gastroenterology
PROC: 0DJD8ZZ Inspection of Lower Intestinal Tract, Via Natural or Artificial Opening Endoscopic (ICD-10-PCS; CPT 45378; principal; 2024-12-15 10:30)
DX: K62.1 Rectal polyp (principal); K64.8 Other hemorrhoids; I10 Essential (primary) hypertension; K58.9 Irritable bowel syndrome, unspecified; F41.9 Anxiety disorder, unspecified; M19.90 Unspecified osteoarthritis, unspecified site; Z79.1 Long term (current) use of non-steroidal anti-inflammatories (NSAID); Z98.890 Other specified postprocedural states; Z90.49 Acquired absence of other specified parts of digestive tract; Z87.891 Personal history of nicotine dependence; Z86.73 Personal history of transient ischemic attack (TIA), and cerebral infarction without residual deficits; Z80.3 Family history of malignant neoplasm of breast; Z80.0 Family history of malignant neoplasm of digestive organs; Z80.41 Family history of malignant neoplasm of ovary; Z82.49 Family history of ischemic heart disease and other diseases of the circulatory system
CPT/HCPCS: 45385; 88305; J2704; J7120